=== PATIENT | female | born 1935 | race Caucasian/White ===

== ENCOUNTER 2016-08-13 17:48 | Observation (INO) | END 2016-08-16 21:15 | disposition home or self-care (01) | DX: M11.262 Other chondrocalcinosis, left knee (principal); I10 Essential (primary) hypertension; E78.00 Pure hypercholesterolemia, unspecified; K21.9 Gastro-esophageal reflux disease without esophagitis; E78.5 Hyperlipidemia, unspecified; M19.90 Unspecified osteoarthritis, unspecified site; Z78.0 Asymptomatic menopausal state; Z83.3 Family history of diabetes mellitus; Z82.49 Family history of ischemic heart disease and other diseases of the circulatory system | CPT/HCPCS: 73562; 73590; 73610; 80048; 80053; 80061; 82550; 82553; 83036; 83735; 84100; 84439; 84443; 84484; 84560; 85025; 85651; 93971; 96360; 96361; 96374; 96375; 99285; G0378; G8978; G8979; J2270; J2405; J7030 ==